=== PATIENT | male | born 1975 | race Caucasian/White ===

== ENCOUNTER 2020-12-20 10:35 | Day surgery (SDC) | payer OTHER ==
[~2020-12-20] VITALS: Ht 172.7 cm; Wt 97.7 kg
[2020-12-20 10:40] VITALS: BP 149/96
[2020-12-20] MEDS ORDERED: LISINOPRIL40 MG PO (10:41)
[2020-12-20] MEDS ORDERED: COREG CR80 MG PO (10:41)
[2020-12-20] MEDS ORDERED: ZOCOR10 MG (10:42)
[2020-12-20] MEDS ORDERED: ZOLOFT50 MG (10:42)
[2020-12-20] MEDS ORDERED: NORVASC5 MG (10:42)
[2020-12-20] MEDS ORDERED: KLONOPIN1 MG PO (10:43)
[2020-12-20] MEDS ORDERED: TRAZODONE HCL50 MG PO (10:43)
[2020-12-20] MEDS ORDERED: ELIQUIS5 MG PO (10:43)
[2020-12-20 10:58] LABS: BASOPHILS 0.3 % (0-2); EOSINOPHILS 3.8 % (0-7); HEMATOCRIT 45.4 % (42.0-54.0); HEMOGLOBIN 15.8 g/dL (13.5-17.5); LYMPHOCYTES 17.7 % (15-50); MCH 31.1 pg (26.0-34.0); MCHC 34.7 g/dL (31.0-37.0); MCV 89.7 fL (80.0-100.0); MEAN PLATELET VOLUME 8.4 fL (7.4-10.4); NEUTROPHILS 69.2 % (40-80); PLATELET COUNT 163 10x3/uL (130-400); RBC 5.07 10x6/uL (4.20-6.10); RDW 13.4 % (11.5-14.5); WBC 12.7 10x3/uL (4.8-10.8)
[2020-12-20 11:07] LABS: CALC OSMOLALITY 268 mosm/kg (275-300); CALCIUM 9.3 mg/dL (8.5-10.1); CARBON DIOXIDE 27.1 mmol/L (21.0-32.0); CHLORIDE - SERUM 98 mmol/L (98-107); CREATININE - SERUM 1.1 mg/dL (0.6-1.3); GLUCOSE 125 mg/dL (74-106); POTASSIUM - SERUM 4.3 mmol/L (3.5-5.1); SODIUM 133 mmol/L (136-145); UREA NITROGEN 18 mg/dL (7-18); eGFR NON AFRICAN AMERICAN 77 mL/min (90-120)
[2020-12-20 11:12] LABS: BILIRUBIN NEGATIVE (NEGATIVE); KETONE NEGATIVE (NEGATIVE); NITRITE NEGATIVE (NEGATIVE); UROBILINOGEN NORMAL mg/dL (< 2)
[2020-12-20 11:13] LABS: BACTERIA NONE SEEN HPF (NONE SEEN); SQUAMOUS EPITHELIAL NONE SEEN HPF (0-4); WHITE CELLS - URINE NONE SEEN HPF (0-1)
[2020-12-20 11:18] LABS: ALBUMIN 4.4 g/dL (3.4-5.0); ALKALINE PHOSPHATASE 51 U/L (30-120); ALT (SGPT) 46 U/L (10-68); AMYLASE - SERUM 39 U/L (25-115); BILIRUBIN - TOTAL 0.55 mg/dL (0.2-1.3); LIPASE 186 U/L (73-393); PROTEIN - SERUM 7.7 g/dL (6.4-8.2); TROPONIN-I < 0.017 ng/mL (0.000-0.060)
[2020-12-20 12:35] VITALS: Ht 172.7 cm; Wt 97.7 kg
[2020-12-20 12:48] LABS: APTT 29.3 SECONDS (22.8-39.4); INR 1.11 (0.85-1.17); PROTIME 13.3 SECONDS (11.6-15.0)
[2020-12-20] MEDS ORDERED: HYDROCODON-ACE1 EA10 PO (14:14)
--- NOTE | 2020-12-20 15:05 | NUR ---
VERBAL ORDER TO GIVE DILAUDED OF 0.5MG Q3MIN IF NEEDED. IT CURRENTLY WORKING ON GETTING ANESTHESIA ACCESS TO PUT ORDERS IN. DILAUDED GIVE AT 1434 0.5MG, 1437 0.5MG 1440 0.5MG 1443 0.5MG. ANESTHESIA AWARE OF NARCOTICS GIVEN.
--- NOTE | 2020-12-20 16:36 | NUR ---
1457 TO ROOM AND AWAKE, EATING CRACKERS AND APPLE JUICE. ABDOMINAL DRESSING CDI. X3 IV RIGHT HAND. 1625 VOIDED WITH A SMALL AMT OF BURNING. 1630 IV REMOVED AND INSTRUCTIONS GIVEN.
--- NOTE | 2020-12-23 13:08 | OP ---
PATIENT NAME: BRIAN SCOTT MEDICAL RECORD: [id number] :77 LOCATION:D.OPS ADMISSION DATE: SURGEON: WOODROW GIRARD MD DATE OF OPERATION: 12/20/2020 PREOPERATIVE DIAGNOSES: 1. Acute appendicitis with localized peritonitis. 2. Hypertension. 3. Atrial fibrillation. 4. Hypercholesterolemia. 5. Chronic anticoagulation use. POSTOPERATIVE DIAGNOSES: 1. Acute appendicitis with localized peritonitis. 2. Hypertension. 3. Atrial fibrillation. 4. Hypercholesterolemia. 5. Chronic anticoagulation use. PROCEDURE: Laparoscopic appendectomy. SURGEON: Woodrow Girard MD DESCRIPTION OF PROCEDURE: The patient's abdomen was prepped and draped in sterile fashion. A cutdown was made on the superior aspect of the umbilicus, 0 Vicryls were placed in the fascia bilaterally and the fascia was incised with a 15-blade. I then bluntly entered the peritoneal cavity and placed a 12-mm Constantino port. Under direct visualization, a 5-mm trocar was placed in the left lower quadrant and another was placed in the suprapubic region. The patient's appendix was easily visualized. It was noted to be inflamed, but no signs of gangrene or perforation. A window was made in the base of the mesoappendix and the mesoappendix was transected with a 45 white load Endo-JASPER stapler. The base of the appendix was then transected at the cecum using a 45 blue load Endo-JASPER stapler. The appendix was placed into an EndoCatch bag. We irrigated out the right lower quadrant and there were no signs of any active bleeding. The ports and insufflation were then removed and the appendix was taken out through the umbilicus. The umbilical fascia was closed with interrupted 0 Vicryls times 3. The wounds were then irrigated out with normal saline and infused with 10 mL of 0.25% Marcaine with epinephrine. The skin incisions were closed with subcutaneous 5-0 Monocryl and dressed appropriately. COMPLICATIONS: None. CONDITION: Stable. ANESTHESIA: General endotracheal and local. BLOOD LOSS: Minimal. TRANSINT:[id number] Voice Confirmation ID: [id number] DOCUMENT ID: [id number] OPERATIVE REPORT [id number] TYLERBRIAN JAIMES WOODROW GIRARD MD at 9715 CC: [id number] DICTATION DATE: 12/20/20 1415 ORE GRADER: 12/20/20 1719 [facility] 12/20/20 [place] [id number] [place] [id number]
== END 2020-12-20 16:35 | disposition home or self-care (01) ==
LOC: D.ER 10:35 → D.OPS 12:45
PROVIDERS: Emergency Medicine; ATTEND Surgery
DX: K35.30 Acute appendicitis with localized peritonitis, without perforation or gangrene (principal); I10 Essential (primary) hypertension; I48.91 Unspecified atrial fibrillation; E78.00 Pure hypercholesterolemia, unspecified; Z79.01 Long term (current) use of anticoagulants; R10.9 Unspecified abdominal pain; D72.829 Elevated white blood cell count, unspecified; R73.9 Hyperglycemia, unspecified